=== PATIENT | male | born 1960 | race Caucasian/White ===

== ENCOUNTER 2017-04-02 18:07 | Emergency (ER) | payer OTHER ==
[~2017-04-02] VITALS: Ht 177.8 cm; Wt 90.7 kg
[2017-04-02 19:30] LABS: BASO % 0.1 % (0.0-1.0); EOS % 0.2 % (1.0-4.0); HEMATOCRIT 34.9 % (42.0-52.0); HEMOGLOBIN 11.6 g/dl (14.0-18.0); LYMPH # 1.4 10*3/uL (1.3-4.4); LYMPH % 12.3 % (27.0-41.0); MEAN CELL VOLUME 90.4 fl (80.0-94.0); MEAN CORPUSCULAR HGB 30.1 pg (27.0-31.0); MEAN CORPUSCULAR HGB CONC 33.2 g/dl (33.0-37.0); MEAN PLATELET VOLUME 9.5 fl (9.6-12.3); MONO # 1.3 10*3/uL (0.1-1.0); MONO % 11.5 % (3.0-9.0); NEUT # 8.5 10*3/uL (2.3-7.9); NEUT % 75.5 % (47.0-73.0); PLATELET COUNT AUTOMATED 297 10*3/uL (130-400); RED BLOOD COUNT 3.86 10*6/uL (4.50-5.90); RED CELL DISTRI WIDTH 12.7 % (0-14.5); WHITE BLOOD COUNT 11.2 10*3/uL (4.8-10.8)
[2017-04-02 19:43] LABS: ALBUMIN 3.2 gm/dl (3.1-4.5); ALKALINE PHOSPHATASE 57 U/L (45-117); BUN 36 mg/dl (7-24); CHLORIDE 108 mmol/L (98-107); CREATININE 1.04 mg/dL (0.70-1.30); LIPASE 198 U/L (73-393); SGOT/AST 10 IU/L (3-35); SGPT/ALT 22 U/L (12-78); SODIUM 139 mmol/L (136-145)
== END 2017-04-03 00:31 | disposition home or self-care (01) ==
LOC: ED 18:07
PROVIDERS: Physician Assistant
DX: K62.5 Hemorrhage of anus and rectum (principal)

== ENCOUNTER 2017-04-04 10:45 | Inpatient (IN) | payer OTHER ==
[2017-04-04] VITALS (13 sets, daily range): BP systolic 117–145; BP diastolic 57–82
[~2017-04-04] VITALS: Ht 177.8 cm; Wt 89.8 kg
--- NOTE | ~2017-04-04 | O ---
[place], [place] OPERATIVE NOTE [id number] UNIT #: [id number] ROOM: 412 DOCTOR: SHIV MCDOWELLJULIETA BIRTHDATE: [birth year] DOS: 04/04/2017 GASTROENDOSCOPIC REPORT. HISTORY OF PRESENT ILLNESS: A 56-year-old patient who has presented with chief complaint of black tarry stool, history of bleeding ulcer. ALLERGIES: No known medications. FAMILY HISTORY: Noncontributory. PAST SURGICAL HISTORY: EGDs and tonsillectomy. SOCIAL HISTORY: Nonsmoker, nonalcohol consumer. He is not on aspirin, not on anticoagulant, not on nonsteroidal anti-inflammatory. PROCEDURE: Today's procedure part of investigation is panendoscopy plus biopsy plus epinephrine hemostasis injection therapy plus biopsy. PREMEDICATION: Versed and Diprivan. SCOPE: Olympus forward-viewing gastroscope Q10 video. REPORT: After putting the patient in the left lateral position and after application of lubricant to the scope, the scope was introduced; thereafter, under direct visualization, advanced through the length of esophagus without difficulty. Esophagus cervicothoracic distally carefully examined. Gastric pouch was entered. Presence of blood in the gastric pouch was noticed. Search was made for source of bleeding after suctioning about 500 bile and blood mixture out of the gastric pouch. Duodenal bulb was entered. There is a large clot in the duodenal bulb, which appears to be capping a bleeding vessel. Some of the clot was removed and suspected area was injected with 1 mL of epinephrine 1:10,000 and pyloric ring proximal to the ulcer from the dorsum aspect it was also injected with 1.5 mL of epinephrine to assure control of bleeding and this achieved. The patient's antrum was biopsied for ruling out H. pylori as the culprit and the patient tolerated the procedure well. IMPRESSION: Bleeding duodenal bulb vessel, status post epinephrine injection hemostasis therapy, status post antral biopsy for H. pylori. PLAN AND DISCUSSION: We are going to be supportive therapy, admitting the patient on Sandostatin drip and Protonix 40 mg IV b.i.d., sucralfate 2 grams q. 6 hours, immediate CBC, comprehensive metabolic panel and H and H q. 12 hours, monitoring and clinical reassessment. Thank you very much indeed. [place], [place] OPERATIVE NOTE NAME: JUDD HOLMAN UNIT #: [id number] ROOM: 412 DOCTOR: SHIV MCDOWELL,JULIETA BIRTHDATE: [birth year] JULIETA CHANEY MD CM:OPRECORD:OPERATIVE NOTE [id number] JULIETA CHANEY MD 04/14/17 1709 interface
--- NOTE | ~2017-04-04 | CON ---
[place], [place] REPORT OF CONSULTATION NAME: JUDD HOLMAN UNIT #: [id number] ROOM: 412 DOCTOR: SHIV MCDOWELLCEDRICKDELTAOZZY BIRTHDATE: [birth year] DOS: 04/07/2017 GASTROENDOSCOPIC REPORT HISTORY OF PRESENT ILLNESS: This is a 56-year-old patient who has presented with active gastrointestinal bleed, status post epinephrine and hemostasis therapy, status post Sandostatin drip, continues status post transfusion of 3 units of packed cells Friday evening. He has been kept on ice cream, milk shake. PAST MEDICAL HISTORY: Associated with recurrent duodenal ulcer, abdominal pain, rectal bleed. PAST SURGICAL HISTORY: Endoscopies previously. REVIEW OF SYSTEMS: HEENT: Denies double vision, blurred vision. RESPIRATORY: Denies acute shortness of breath. CARDIOVASCULAR: Denies chest pain. DIGESTIVE SYSTEM: Hematemesis, GI bleed, black tarry stool, drop in H and H, duodenal ulcer. PHYSICAL EXAMINATION: VITAL SIGNS: Stable. HEENT: Head normocephalic, nontraumatic. Mouth and buccal mucosa benign: Supple, no thyromegaly, no cervical lymphadenopathy. CHEST: Symmetric anatomy, equal expansion. No wheeze, no rhonchi. HEART: Normal sinus rhythm, no gallop, no murmur. ABDOMEN: Soft. No hepato-organomegaly. Bowel sounds present. No pulsatile mass. EXTREMITIES: No cyanosis. No pedal edema. NEUROLOGICAL: Alert, oriented to time, place and person. IMPRESSION: Duodenal bulb bleed status post Sandostatin status post sucralfate, status post Protonix, double dose therapy. The patient has been keeping his H and H stable and latest H and H after the Friday evening transfusion is still 8.5 and 25 and yesterday, his H and H as well, stable at 8.4 and 24 and the day before similar post-transfusion. PLAN AND DISCUSSION: I am going to go ahead and give him 1 unit of packed cell transfusion before he will be considered for further advancement and he needs to stay on PPI therapy chronically. When he is discharged, he needs to stay on Carafate and Protonix double dose for 1 month and after that Protonix 40 mg daily for 3 months and after that he needs to remain on omeprazole 20 mg 1 every day. He is going to have H and H after transfusion tonight and now will be getting a call, we are going to increase his diet to soft diet tomorrow morning. He is going to continue the Sandostatin while he is inpatient to ensure that we are going to have no breakthrough bleed. [place], [place] REPORT OF CONSULTATION NAME: JUDD HOLMAN [place] UNIT #: [id number] ROOM: 412 DOCTOR: JULIETA CHANEY MD BIRTHDATE: [birth year] JULIETA CHANEY MD CM:CONSTR:REPORT OF CONSULTATION 99 04/07/17 1836 interface
--- NOTE | 2017-04-04 13:50 | NUR ---
A 56, admitted to , under the services of TONY Espinoza DO with a diagnosis of ULCER. Chief complaint is POST-OP ULCER REPAIR. Patient arrived via stretcher from OP/ADMIT. Monitor applied. Initial assessment completed. Vital signs taken and recorded. TONY ESPINOZA DO notified of admission to the unit. Orders received. See assessment for past medical history, medications and allergies. Patient and/or family oriented to unit. [facility] Clothing/patient valuable form completed. MARY KONG
[2017-04-04 14:34] LABS: BASO % 0.2 % (0.0-1.0); EOS % 0.1 % (1.0-4.0); LYMPH # 1.3 10*3/uL (1.3-4.4); LYMPH % 8.5 % (27.0-41.0); MEAN CELL VOLUME 91.2 fl (80.0-94.0); MEAN CORPUSCULAR HGB 29.9 pg (27.0-31.0); MEAN CORPUSCULAR HGB CONC 32.8 g/dl (33.0-37.0); MEAN PLATELET VOLUME 9.5 fl (9.6-12.3); MONO % 6.1 % (3.0-9.0); PLATELET COUNT AUTOMATED 257 10*3/uL (130-400); RED BLOOD COUNT 2.61 10*6/uL (4.50-5.90); RED CELL DISTRI WIDTH 12.8 % (0-14.5); WHITE BLOOD COUNT 15.5 10*3/uL (4.8-10.8)
[2017-04-04 14:42] LABS: HEMATOCRIT 23.8 % (42.0-52.0); HEMOGLOBIN 7.8 g/dl (14.0-18.0)
[2017-04-04 15:02] LABS: ALKALINE PHOSPHATASE 46 U/L (45-117); BUN 36 mg/dl (7-24); CHLORIDE 105 mmol/L (98-107); CREATININE 0.99 mg/dL (0.70-1.30); POTASSIUM 4.4 mmol/L (3.5-5.1); SGOT/AST 13 IU/L (3-35); SGPT/ALT 22 U/L (12-78); SODIUM 137 mmol/L (136-145); TOTAL PROTEIN 6.3 gm/dL (6.4-8.2)
--- NOTE | 2017-04-04 19:10 | NUR ---
D/C'D THE IV FROM THE RIGHT WRIST. PATIENT STATED THAT THE IV WAS VERY PAINFUL, T/C BAND, ALLERGY BAND AND WRIST BAND WERE ALL ON THE IV SITE. PATIENT REQUESTED THAT IT BE REMOVED.
--- NOTE | 2017-04-04 19:59 | NUR ---
PT WAS APPROACHED TO SIGN A CONSENT FOR BLOOD ADMINISTRATION. I TOLD THE PATIENT HIS CURRENT H/H AND WHY THE TRANSFUSION ORDER WAS IN PLACE. THE PT ASKED TO SPEAK WITH A DOCTOR CONCERNING HIS CONDITION PRIOR TO SIGNING THE CONSENT FORM.
--- NOTE | 2017-04-04 20:30 | NUR ---
Epifanio KERR SPOKE WITH THE PATIENT AND HE IS REFUSING THE BLOOD TRANSFUSION AT THIS TIME HOWEVER HE WILL RECONSIDER IF HIS VITAL SIGNS BECOME UNSTABLE. DR. MCDUFFIE HAD NO FURTHER ORDERS AT THIS TIME.
--- NOTE | 2017-04-04 20:52 | NUR ---
DR. MCDUFFIE NOTIFIED THAT PATIENTS HEART RATE IS RANGING FROM 99-103. DR. MCDUFFIE STATED TO RECHECK HIS VITALS IN ABOUT 15 MINUTES AND IF HE'S ABOUT THE SAME AND SHE WILL COME UP AND SPEAK WITH THE PATIENT AGAIN ABOUT THE BLOOD
--- NOTE | 2017-04-04 21:28 | NUR ---
BP 118/51 HR 115 PO2 100% ON RA. Epifanio KERR CALLED AND NOTIFIED OF THE CHANGE SHE SAID SHE WOULD COME TO DISCUSS THIS CHANGE WITH THE PATIENT
--- NOTE | 2017-04-04 23:29 | NUR ---
DR. MCDUFFIE CALLED AT THIS TIME PERTAINING TO PATIENTS STATUS INQUIRING ABOUT PATIENT HEART RATE AND BLOOD PRESSURE 1 HOUR INTO BLOOD. THIS NURSE STATED THE HEART RATE IS LOWE 100'S AND THE BLOOD PRESSURE 120'S/60'S. THIS NURSE ALSO STATED THAT THE PATIENTS TEMPERATURE IS 99.6 BUT PATIENTS FEELS NO DIFFERENT. THIS NURSE STATED HIS VITALS WILL BE CHECKED AGAIN IN 15 MINUTES. SHE STATED THIS IS FINE. THIS NURSE ALSO STATED THAT THE BOLUS WAS NOT HUNG BECAUSE THE PATIENT NEEDED ANOTHER IV FOR THE BLOOD AND TH BLOOD WAS HUNG DIRECTLY AFTER, SHE STATED IT WAS OK TO HOLD OFF ON THE FLUIDS FOR NOW
--- NOTE | 2017-04-04 23:57 | NUR ---
DR. MCDUFFIE NOTIFIED THAT PATIENTS HEART RATE INCREASED TO 150'S PER CM. DR. MCDUFFIE STATES SHE THINKS THE PATIENT JUST NEEDS VOLUME AND THAT IS THE CAUSE. NO NEW ORDERS RECIEVED. WILL MONITOR
[2017-04-05] VITALS (11 sets, daily range): BP systolic 116–155; BP diastolic 56–75
[2017-04-05 00:20] LABS: HEMATOCRIT 21.6 % (42.0-52.0); HEMOGLOBIN 7.3 g/dl (14.0-18.0)
--- NOTE | 2017-04-05 01:48 | NUR ---
SPOKE WITH DR. MCDUFFIE AT THIS TIME, STATED THAT THE PATIENTS BLOOD WAS DONE AND THAT A H&H WOULD BE DRAWN AT 0245. SHE STATED THIS WOULD BE FINE, AND TO GIVE THE BOLUS THAT WAS ORDERED EARLIER, NOW
[2017-04-05 02:53] LABS: HEMATOCRIT 21.4 % (42.0-52.0); HEMOGLOBIN 7.1 g/dl (14.0-18.0)
[2017-04-05 07:36] LABS: BASO % 0.4 % (0.0-1.0); EOS # 0.2 10*3/uL (0.0-0.4); EOS % 1.6 % (1.0-4.0); HEMATOCRIT 26.1 % (42.0-52.0); HEMOGLOBIN 8.8 g/dl (14.0-18.0); LYMPH # 2.8 10*3/uL (1.3-4.4); LYMPH % 27.4 % (27.0-41.0); MEAN CELL VOLUME 88.8 fl (80.0-94.0); MEAN CORPUSCULAR HGB 29.9 pg (27.0-31.0); MEAN CORPUSCULAR HGB CONC 33.7 g/dl (33.0-37.0); MEAN PLATELET VOLUME 9.3 fl (9.6-12.3); MONO # 1.2 10*3/uL (0.1-1.0); MONO % 11.3 % (3.0-9.0); NEUT # 6.1 10*3/uL (2.3-7.9); NEUT % 58.6 % (47.0-73.0); PLATELET COUNT AUTOMATED 190 10*3/uL (130-400); RED BLOOD COUNT 2.94 10*6/uL (4.50-5.90); RED CELL DISTRI WIDTH 13.7 % (0-14.5); WHITE BLOOD COUNT 10.4 10*3/uL (4.8-10.8)
--- NOTE | 2017-04-05 08:00 | NUR ---
IN BED ALERT AND ORIENTED X3, STATES HE IS VERY TIRED AND HAS NOT HAD ANY SLEEP THROUGHOUT THE NIGHT. NO S/S OF DISTRESS. SANDOSTATIN DRIP INFUSING PER ORDERS. WILL CONT TO MONITOR. CALL LIGHT IN REACH. SEE ASSESS.
[2017-04-05 08:02] LABS: FREE T4 0.94 ng/dl (0.76-1.46); PHOSPHOROUS 2.7 mg/dL (2.5-4.9)
[2017-04-05 08:07] LABS: THYROID STIM HORMONE (HS) 0.226 uIU/ml (0.358-4.75)
[2017-04-05 08:58] LABS: VITAMIN D, 25-HYDROXY 22.9 ng/mL (30-100)
--- NOTE | 2017-04-05 11:38 | NUR ---
PT STOOD UP TO USE THE URINAL AND HR WENT UP TO 140. HE DENIED DIZZINESS OR ANY OTHER SYMPTOMS. PT HR RETURNED TO 70s AFTER LAYING BACK DOWN. I DID NOTIFY TO TORMA OF THIS. NO NEW ORDERS RECEIVED.
[2017-04-05 12:00] LABS: HEMATOCRIT 24.7 % (42.0-52.0); HEMOGLOBIN 8.5 g/dl (14.0-18.0)
[2017-04-05 15:13] LABS: HEMATOCRIT 24.7 % (42.0-52.0); HEMOGLOBIN 8.5 g/dl (14.0-18.0)
--- NOTE | 2017-04-05 19:55 | NUR ---
PT. AWAKE, ALERT AND ORIENTED X3 AT THIS TIME. PT. IN BED ON RA, DENIES SOB. HRR, PPP, NO EDEMA, DENIES CP. PT. MADE NOT OF AN "ITCHY" SPOT ON HIS RAC THAT HE STATED WAS FROM THE TAPE THEY USED DURING BLOOD DRAWS. PT. REQUESTED A CREAM TO HELP RESOLVE THE ITCH. RAC SPOT VERGES ON SKIN TEAR; THIS NURSE HAD NURSING TIE SAWYER TAKE A LOOK TO DETERMINE IF PICTURES WOULD BE NECESSARY. ADVISED TO ERR ON THE SIDE OF CAUTION AND DOCUMENT PICTURES OF THE AREA. CALL LIGHT WITHIN REACH, BED IN LOWEST POSITION, WHEELS LOCKED. SEE SHIFT ASSESSMENT.
--- NOTE | 2017-04-05 21:05 | NUR ---
SPOKE WITH DR. ROBERTSON AT THIS TIME REGARDING AREA ON PTS. RAC. DR. ROBERTSON GAVE ORDER TO PUT IN FOR HYDROCORTISONE AT THIS TIME.
--- NOTE | 2017-04-05 21:41 | NUR ---
SPOKE WITH PHARMACY AT THIS TIME IN REGARDS TO PTS. SANDOSTATIN ORDER. PT. CURRENTLY HAS 6 HOURS REMAINING ON CURRENT INFUSION EVEN THOUGH THE NEXT INFUSION IS DUE AT 2200. PER PHARMACY, IT IS OK TO LEAVE IT IN THE SYSTEM LIKE THIS AND TO SCAN AND HANG THE NEXT SANDOSTATIN WHEN IT IS DUE.
--- NOTE | 2017-04-05 22:02 | NUR ---
MARY COMPLETED AT THIS TIME FOR RT. AC AREA.
--- NOTE | 2017-04-05 22:18 | NUR ---
PHOTOGRAPH TAKEN OF RT. AC AREA AT THIS TIME. WILL NOTIFY LEAD JAVA DEVELOPER ARCHITECT OF PICTURE.
[2017-04-06] VITALS: BP 135/78
--- NOTE | 2017-04-06 01:41 | NUR ---
24 HR. CHART CHECK COMPLETE.
[2017-04-06 05:59] LABS: BASO # 0.1 10*3/uL (0.0-0.1); BASO % 0.6 % (0.0-1.0); EOS # 0.7 10*3/uL (0.0-0.4); EOS % 7.2 % (1.0-4.0); HEMATOCRIT 24.7 % (42.0-52.0); HEMOGLOBIN 8.4 g/dl (14.0-18.0); LYMPH # 2.9 10*3/uL (1.3-4.4); MEAN CELL VOLUME 89.5 fl (80.0-94.0); MEAN CORPUSCULAR HGB 30.4 pg (27.0-31.0); MEAN PLATELET VOLUME 9.8 fl (9.6-12.3); MONO % 10.1 % (3.0-9.0); NEUT # 4.9 10*3/uL (2.3-7.9); NEUT % 51.3 % (47.0-73.0); NUCLEATED RED BLOOD CELL 0.3 % (0.0-0.0); PLATELET COUNT AUTOMATED 233 10*3/uL (130-400); RED BLOOD COUNT 2.76 10*6/uL (4.50-5.90); RED CELL DISTRI WIDTH 14.2 % (0-14.5); WHITE BLOOD COUNT 9.6 10*3/uL (4.8-10.8)
[2017-04-06 06:30] LABS: CHLORIDE 107 mmol/L (98-107); CREATININE 1.09 mg/dL (0.70-1.30); POTASSIUM 4.2 mmol/L (3.5-5.1); SODIUM 141 mmol/L (136-145)
[2017-04-06 06:31] LABS: BUN 20 mg/dl (7-24)
[2017-04-06 08:00] VITALS: BP 134/54
--- NOTE | 2017-04-06 11:42 | NUR ---
HR IN 150'S, PT WAS UP TO RR FOR AM HYGIENE.
[2017-04-06 12:00] VITALS: BP 169/78
[2017-04-06 16:00] VITALS: BP 115/67
[2017-04-06 20:00] VITALS: BP 116/62
[2017-04-07] VITALS: BP 127/62
--- NOTE | 2017-04-07 01:38 | NUR ---
24 HR chart check completed.
[2017-04-07 04:00] VITALS: BP 130/68
[2017-04-07 06:14] LABS: BASO % 0.4 % (0.0-1.0); EOS # 0.6 10*3/uL (0.0-0.4); EOS % 7.2 % (1.0-4.0); HEMOGLOBIN 8.5 g/dl (14.0-18.0); LYMPH # 2.9 10*3/uL (1.3-4.4); LYMPH % 34.2 % (27.0-41.0); MEAN CELL VOLUME 90.6 fl (80.0-94.0); MEAN CORPUSCULAR HGB 30.8 pg (27.0-31.0); MEAN PLATELET VOLUME 9.3 fl (9.6-12.3); MONO # 0.9 10*3/uL (0.1-1.0); MONO % 10.6 % (3.0-9.0); NEUT % 46.9 % (47.0-73.0); NUCLEATED RED BLOOD CELL 0.2 % (0.0-0.0); PLATELET COUNT AUTOMATED 295 10*3/uL (130-400); RED BLOOD COUNT 2.76 10*6/uL (4.50-5.90); RED CELL DISTRI WIDTH 14.5 % (0-14.5); WHITE BLOOD COUNT 8.5 10*3/uL (4.8-10.8)
[2017-04-07 06:28] LABS: BUN 18 mg/dl (7-24); CHLORIDE 106 mmol/L (98-107); CREATININE 1.15 mg/dL (0.70-1.30); POTASSIUM 3.6 mmol/L (3.5-5.1); SODIUM 141 mmol/L (136-145)
--- NOTE | 2017-04-07 06:35 | NUR ---
PT RESTING QUIETLY IN BED WITH EYES CLOSED. NO S/S OF DISTRESS NOTED.
[2017-04-07 08:00] VITALS: BP 124/68
--- NOTE | 2017-04-07 09:00 | NUR ---
Catechist in to talk to patient. Patient states lives at home with girlfriend. There are few steps in the home. Physician: troy morton Pharmacy: [facility] health services: none Patient's level of ADLs: INDEPENDENT Patient has working utilities: all workibg DME: none Follow-up physician's appointment after d/c: will be made by hospitalist nurse director upon discharge Does patient want to access PORTAL?: no Discharge plan discussed with patient, patient lives at home with girlfriend, he is independent in adls and ambualtion, works, drives, patient will be going back home when able and denies any home needs. TIFFANIE MATT
--- NOTE | 2017-04-07 09:36 | NUR ---
JUDD HOLMAN [id number] Please refer to the physician's history and physical for past medical history, comorbid conditions, and allergies. Diagnosis: DUODENAL BLEED Vin Score: 23,LOW OR NO RISK WOUND DESCRIPTIONS: Location of the wound: rigth ac Type of wound: skin tear Thickness: Partial Size: 0.5cm x 1.5cm x 0.1cm Tunneling: none Undermining: none Sinus Tract: none Presence of Exudate: none Amount: None Color: Red Odor: None Periwound Skin Appearance: Normal Wound edges: approximated Pain (associated with wound): none at time of assessment How does patient state this happened? pt stated he had several blood draws and when the tape kept getting applied and taken off it caused this area. He stated the area became very itchy and that it is getting better. Surface the patient is resting on: Position Pro SKIN PREVENTION RECOMMENDATION: 1. Pressure redistribution support surface as appropriate 2. Elevate heels 3. Remove boots/TEDS every shift and reapply 4. Head of bed 30 degrees as tolerated 5. Assess nutrition and hydration 6. Manage moisture 7. Avoid the use of containment devices while in bed 8. Use absorptive products on surfaces limit layers of linens on bed 9. Turn and reposition every 1-2 hours in bed and every 1 hour in chair as tolerated 10. Weight shifts every 15 minutes while up in chair 11. Offloading with pillows or device to keep heels elevated off bed 12. Monitor skin at least every shift 13. Inspect under medical devices twice a day WOUND TREATMENT RECOMMENDATIONS: Continue current treatment as per md.
[2017-04-07 12:00] VITALS: BP 125/76
--- NOTE | 2017-04-07 14:45 | NUR ---
PT AWAKE ALERT AND ORIENTED X3, NO COMPLAINTS AT THIS TIME. DENIES PAIN N/V/D
[2017-04-07 16:00] VITALS: BP 119/73
--- NOTE | 2017-04-07 19:23 | NUR ---
PT. RESTING COMFORTABLY IN BED AT THIS TIME WITH HOB ELEVATED, WHEELS LOCKED, BED IN LOWEST POSITION AND CALL LIGHT WITHIN REACH. PT. HAS NO COMPLAINTS AT THIS TIME. SEE SHIFT ASSESSMENT.
[2017-04-07 20:00] VITALS: BP 112/65
[2017-04-08] VITALS: BP 113/66
[2017-04-08 07:39] LABS: BASO % 0.5 % (0.0-1.0); EOS # 0.3 10*3/uL (0.0-0.4); EOS % 3.7 % (1.0-4.0); HEMOGLOBIN 10.4 g/dl (14.0-18.0); LYMPH # 2.2 10*3/uL (1.3-4.4); MEAN CELL VOLUME 88.2 fl (80.0-94.0); MEAN CORPUSCULAR HGB 30.6 pg (27.0-31.0); MEAN CORPUSCULAR HGB CONC 34.7 g/dl (33.0-37.0); MEAN PLATELET VOLUME 8.9 fl (9.6-12.3); MONO # 1.1 10*3/uL (0.1-1.0); MONO % 12.3 % (3.0-9.0); NEUT % 57.8 % (47.0-73.0); PLATELET COUNT AUTOMATED 344 10*3/uL (130-400); RED CELL DISTRI WIDTH 15.2 % (0-14.5); WHITE BLOOD COUNT 8.6 10*3/uL (4.8-10.8)
[2017-04-08 08:00] VITALS: BP 127/63; BP 148/78
--- NOTE | 2017-04-08 09:00 | NUR ---
case management visits with patient, patient states he hopes to be going home today and denies any home needs
--- NOTE | 2017-04-08 09:18 | NUR ---
PT TOLERATED SOFT DIET THIS AM, PT ALSO REPORTS A SMALL HARD BM. PT DENIES N/V NORMOACTIVE BOWEL SOUNDS.
--- NOTE | 2017-04-08 11:44 | NUR ---
NOTIFIED OF H&H AND DARK STOOL X1. PT DENIES ANY ABD PAIN N/V/D
[2017-04-08 12:00] VITALS: BP 124/64
[2017-04-08 16:00] VITALS: BP 150/81
[2017-04-08 20:00] VITALS: BP 142/77
--- NOTE | 2017-04-08 20:15 | NUR ---
PT. RESTING IN BED COMFORTABLY AT THIS TIME WITH NO SIGNS OF DISTRESS OR ANY COMPLAINTS. HOB IS ELEVATED, CALL LIGHT IS WITHIN REACH, BED IS LOW AND WHEELS ARE LOCKED. SEE SHIFT ASSESSMENT.
[2017-04-09] VITALS: BP 108/71
--- NOTE | 2017-04-09 00:51 | NUR ---
24 HR chart check completed.
[2017-04-09 04:00] VITALS: BP 116/74
[2017-04-09 06:57] LABS: BASO % 0.5 % (0.0-1.0); EOS # 0.4 10*3/uL (0.0-0.4); HEMATOCRIT 28.7 % (42.0-52.0); HEMOGLOBIN 9.6 g/dl (14.0-18.0); LYMPH # 2.2 10*3/uL (1.3-4.4); LYMPH % 28.4 % (27.0-41.0); MEAN CELL VOLUME 89.7 fl (80.0-94.0); MEAN CORPUSCULAR HGB CONC 33.4 g/dl (33.0-37.0); MEAN PLATELET VOLUME 9.1 fl (9.6-12.3); MONO # 1.1 10*3/uL (0.1-1.0); NEUT % 51.7 % (47.0-73.0); PLATELET COUNT AUTOMATED 356 10*3/uL (130-400); RED CELL DISTRI WIDTH 14.8 % (0-14.5); WHITE BLOOD COUNT 7.7 10*3/uL (4.8-10.8)
[2017-04-09 08:00] VITALS: BP 135/87
--- NOTE | 2017-04-09 09:00 | NUR ---
case management visits with patient, patient denies any home needs
[2017-04-09 12:00] VITALS: BP 133/71
--- NOTE | 2017-04-09 13:04 | NUR ---
Dr. Talley was called message left to return call re: discontinuation of sandostatin drip.
--- NOTE | 2017-04-09 15:27 | NUR ---
Dr. Talley called in ok to stop sandostatin . H/H in AM.
[2017-04-09 15:49] LABS: BASO % 0.4 % (0.0-1.0); EOS # 0.3 10*3/uL (0.0-0.4); EOS % 2.9 % (1.0-4.0); HEMATOCRIT 29.6 % (42.0-52.0); HEMOGLOBIN 9.9 g/dl (14.0-18.0); LYMPH % 21.3 % (27.0-41.0); MEAN CELL VOLUME 90.2 fl (80.0-94.0); MEAN CORPUSCULAR HGB 30.2 pg (27.0-31.0); MEAN CORPUSCULAR HGB CONC 33.4 g/dl (33.0-37.0); MONO # 1.1 10*3/uL (0.1-1.0); MONO % 11.4 % (3.0-9.0); NEUT # 5.9 10*3/uL (2.3-7.9); NEUT % 63.6 % (47.0-73.0); PLATELET COUNT AUTOMATED 418 10*3/uL (130-400); RED BLOOD COUNT 3.28 10*6/uL (4.50-5.90); RED CELL DISTRI WIDTH 14.9 % (0-14.5); WHITE BLOOD COUNT 9.3 10*3/uL (4.8-10.8)
[2017-04-09 16:00] VITALS: BP 156/84
[2017-04-09 20:00] VITALS: BP 129/66
[2017-04-10] VITALS: BP 116/64
[2017-04-10 06:11] LABS: BASO % 0.4 % (0.0-1.0); EOS # 0.4 10*3/uL (0.0-0.4); EOS % 5.3 % (1.0-4.0); HEMOGLOBIN 9.7 g/dl (14.0-18.0); LYMPH # 2.1 10*3/uL (1.3-4.4); LYMPH % 24.8 % (27.0-41.0); MEAN CELL VOLUME 91.5 fl (80.0-94.0); MEAN CORPUSCULAR HGB 30.6 pg (27.0-31.0); MEAN CORPUSCULAR HGB CONC 33.4 g/dl (33.0-37.0); MONO % 11.7 % (3.0-9.0); NEUT # 4.7 10*3/uL (2.3-7.9); NEUT % 57.1 % (47.0-73.0); PLATELET COUNT AUTOMATED 394 10*3/uL (130-400); RED BLOOD COUNT 3.17 10*6/uL (4.50-5.90); RED CELL DISTRI WIDTH 14.7 % (0-14.5); WHITE BLOOD COUNT 8.3 10*3/uL (4.8-10.8)
[2017-04-10 06:32] LABS: BUN 24 mg/dl (7-24); CHLORIDE 107 mmol/L (98-107); POTASSIUM 3.7 mmol/L (3.5-5.1); SODIUM 141 mmol/L (136-145)
[2017-04-10 06:33] LABS: CREATININE 1.14 mg/dL (0.70-1.30)
[2017-04-10 08:00] VITALS: BP 123/73
--- NOTE | 2017-04-10 09:00 | NUR ---
case management visits with patient, patient denies any home needs at this time
[2017-04-10 12:00] VITALS: BP 117/60
[2017-04-10] MEDS ORDERED: PANTOPRAZOLE SO40 MG PO (12:40)
[2017-04-10] MEDS ORDERED: Carafate1 GM PO (12:40)
--- NOTE | 2017-04-10 12:49 | NUR ---
[facility] Discharge instructions reviewed with patient/family. Patient receptive and verbalizes understanding. Follow-up care arranged. Written instructions given to patient/family. LISA HUITRON
== END 2017-04-10 12:49 | disposition home or self-care (01) | DRG 327 ==
LOC: SDC 10:45 → 4E 12:12 → SDC 14:30 → 4E 21:57
PROVIDERS: Family Medicine; Internal Medicine; Internal Medicine Gastroenterology; Registered Nurse; ADMIT Internal Medicine
PROC: 3E0G8GC Introduction of Other Therapeutic Substance into Upper GI, Via Natural or Artificial Opening Endoscopic (ICD-10-PCS; principal; 2017-04-04)
PROC: 0DB68ZX Excision of Stomach, Via Natural or Artificial Opening Endoscopic, Diagnostic (ICD-10-PCS; principal; 2017-04-04)
PROC: 30233N1 Transfusion of Nonautologous Red Blood Cells into Peripheral Vein, Percutaneous Approach (ICD-10-PCS; 2017-04-04)
PROC: 0DC98ZZ Extirpation of Matter from Duodenum, Via Natural or Artificial Opening Endoscopic (ICD-10-PCS; 2017-04-04)
PROC: 0D968ZZ Drainage of Stomach, Via Natural or Artificial Opening Endoscopic (ICD-10-PCS; 2017-04-04)
DX: K26.4 Chronic or unspecified duodenal ulcer with hemorrhage (principal); E44.0 Moderate protein-calorie malnutrition; D50.0 Iron deficiency anemia secondary to blood loss (chronic); E66.3 Overweight; R19.8 Other specified symptoms and signs involving the digestive system and abdomen; E53.8 Deficiency of other specified B group vitamins; E83.41 Hypermagnesemia; E78.1 Pure hyperglyceridemia; R00.0 Tachycardia, unspecified; Z79.899 Other long term (current) drug therapy; Z80.6 Family history of leukemia; Z68.28 Body mass index [BMI] 28.0-28.9, adult; K62.5 Hemorrhage of anus and rectum

== ENCOUNTER → 2017-07-02 | Outpatient (CLI) | payer OTHER ==
[~2017-07-02] MED LIST: Carafate1 GM PO; PANTOPRAZOLE SO40 MG PO
[2017-07-02 16:22] LABS: BASO # 0.1 10*3/uL (0.0-0.1); BASO % 0.8 % (0.0-1.0); EOS # 0.4 10*3/uL (0.0-0.4); EOS % 6.8 % (1.0-4.0); HEMATOCRIT 38.5 % (42.0-52.0); HEMOGLOBIN 11.8 g/dl (14.0-18.0); LYMPH # 1.6 10*3/uL (1.3-4.4); LYMPH % 27.5 % (27.0-41.0); MEAN CELL VOLUME 83.5 fl (80.0-94.0); MEAN CORPUSCULAR HGB 25.6 pg (27.0-31.0); MEAN CORPUSCULAR HGB CONC 30.6 g/dl (33.0-37.0); MEAN PLATELET VOLUME 9.4 fl (9.6-12.3); MONO # 0.7 10*3/uL (0.1-1.0); NEUT # 3.1 10*3/uL (2.3-7.9); NEUT % 52.7 % (47.0-73.0); PLATELET COUNT AUTOMATED 353 10*3/uL (130-400); RED BLOOD COUNT 4.61 10*6/uL (4.50-5.90); RED CELL DISTRI WIDTH 14.3 % (0-14.5); WHITE BLOOD COUNT 5.9 10*3/uL (4.8-10.8)
[2017-07-02 16:53] LABS: ALBUMIN 3.9 gm/dl (3.1-4.5); ALKALINE PHOSPHATASE 70 U/L (45-117); BUN 16 mg/dl (7-24); CHLORIDE 104 mmol/L (98-107); CHOLESTEROL 260 mg/dL (<200); CREATININE 1.15 mg/dL (0.70-1.30); HDL CHOLESTEROL 43 mg/dl (40-60); LDL CHOLESTEROL 175 mg/dL (9-159); SGOT/AST 24 IU/L (3-35); SGPT/ALT 30 U/L (12-78); SODIUM 140 mmol/L (136-145); TOTAL PROTEIN 8.1 gm/dL (6.4-8.2); TRIGLYCERIDES 210 mg/dl (<150); VLDL CHOLESTEROL 42 mg/dL (6-40)
== END | disposition home or self-care (01) ==
LOC: LAB 15:38
PROVIDERS: Internal Medicine
DX: I10 Essential (primary) hypertension (principal)

== ENCOUNTER → 2017-12-24 | Outpatient (CLI) | payer OTHER ==
[2017-12-24 16:24] LABS: BASO # 0.1 10*3/uL (0.0-0.1); BASO % 0.8 % (0.0-1.0); EOS # 0.3 10*3/uL (0.0-0.4); HEMATOCRIT 42.6 % (42.0-52.0); HEMOGLOBIN 13.9 g/dl (14.0-18.0); LYMPH # 1.8 10*3/uL (1.3-4.4); LYMPH % 28.5 % (27.0-41.0); MEAN CELL VOLUME 89.7 fl (80.0-94.0); MEAN CORPUSCULAR HGB 29.3 pg (27.0-31.0); MEAN CORPUSCULAR HGB CONC 32.6 g/dl (33.0-37.0); MEAN PLATELET VOLUME 9.5 fl (9.6-12.3); MONO # 0.9 10*3/uL (0.1-1.0); MONO % 14.6 % (3.0-9.0); NEUT # 3.3 10*3/uL (2.3-7.9); NEUT % 51.9 % (47.0-73.0); PLATELET COUNT AUTOMATED 318 10*3/uL (130-400); RED BLOOD COUNT 4.75 10*6/uL (4.50-5.90); RED CELL DISTRI WIDTH 13.4 % (0-14.5); WHITE BLOOD COUNT 6.3 10*3/uL (4.8-10.8)
[2017-12-24 16:40] LABS: ALBUMIN 3.9 gm/dl (3.1-4.5); ALKALINE PHOSPHATASE 65 U/L (45-117); BUN 19 mg/dl (7-24); CHLORIDE 108 mmol/L (98-107); CHOLESTEROL 255 mg/dL (<200); CREATININE 1.44 mg/dL (0.70-1.30); HDL CHOLESTEROL 41 mg/dl (40-60); LDL CHOLESTEROL 181 mg/dL (9-159); POTASSIUM 4.1 mmol/L (3.5-5.1); SGOT/AST 17 IU/L (3-35); SGPT/ALT 33 U/L (12-78); SODIUM 141 mmol/L (136-145); TOTAL PROTEIN 7.7 gm/dL (6.4-8.2); TRIGLYCERIDES 165 mg/dl (<150); VLDL CHOLESTEROL 33 mg/dL (6-40)
== END | disposition home or self-care (01) ==
LOC: LAB 16:00
PROVIDERS: Internal Medicine
DX: I10 Essential (primary) hypertension (principal)

== ENCOUNTER → 2019-06-25 | Outpatient (CLI) | payer OTHER ==
[2019-06-25 18:04] LABS: BUN 17 mg/dl (7-24); CHLORIDE 108 mmol/L (98-107); CHOLESTEROL 173 mg/dL (<200); CREATININE 1.38 mg/dL (0.70-1.30); HDL CHOLESTEROL 42 mg/dl (40-60); LDL CHOLESTEROL 101 mg/dL (9-159); POTASSIUM 4.1 mmol/L (3.5-5.1); SODIUM 139 mmol/L (136-145); TRIGLYCERIDES 148 mg/dl (<150); VLDL CHOLESTEROL 30 mg/dL (6-40)
== END | disposition home or self-care (01) ==
LOC: LAB 14:03
PROVIDERS: Internal Medicine
DX: E78.5 Hyperlipidemia, unspecified (principal); N18.3 Chronic kidney disease, stage 3 (moderate)

== ENCOUNTER → 2019-12-28 | Outpatient (CLI) | payer OTHER ==
[2019-12-28 14:11] LABS: BASO % 0.5 % (0.0-1.0); EOS # 0.4 10*3/uL (0.0-0.4); EOS % 6.5 % (1.0-4.0); HEMATOCRIT 39.5 % (42.0-52.0); LYMPH % 30.5 % (27.0-41.0); MEAN CORPUSCULAR HGB 29.5 pg (27.0-31.0); MEAN CORPUSCULAR HGB CONC 32.4 g/dl (33.0-37.0); MEAN PLATELET VOLUME 9.2 fl (9.6-12.3); MONO # 0.9 10*3/uL (0.1-1.0); MONO % 13.3 % (3.0-9.0); NEUT # 3.2 10*3/uL (2.3-7.9); PLATELET COUNT AUTOMATED 300 10*3/uL (130-400); RED BLOOD COUNT 4.34 10*6/uL (4.50-5.90); RED CELL DISTRI WIDTH 12.9 % (0-14.5); WHITE BLOOD COUNT 6.5 10*3/uL (4.8-10.8)
[2019-12-28 14:30] LABS: ALBUMIN 3.7 gm/dl (3.1-4.5); ALKALINE PHOSPHATASE 66 U/L (45-117); BUN 23 mg/dl (7-24); CHLORIDE 111 mmol/L (98-107); CHOLESTEROL 165 mg/dL (<200); CREATININE 1.04 mg/dL (0.70-1.30); HDL CHOLESTEROL 39 mg/dl (40-60); LDL CHOLESTEROL 92 mg/dL (9-159); POTASSIUM 3.9 mmol/L (3.5-5.1); SGOT/AST 21 IU/L (3-35); SGPT/ALT 38 U/L (12-78); SODIUM 141 mmol/L (136-145); TOTAL PROTEIN 7.2 gm/dL (6.4-8.2); TRIGLYCERIDES 168 mg/dl (<150); VLDL CHOLESTEROL 34 mg/dL (6-40)
== END | disposition home or self-care (01) ==
LOC: LAB 13:54
PROVIDERS: Internal Medicine
DX: Z00.00 Encounter for general adult medical examination without abnormal findings (principal); I10 Essential (primary) hypertension

== ENCOUNTER 2024-01-29 09:24 | Emergency (ER) | payer OTHER ==
[~2024-01-29] VITALS: Ht 177.8 cm
[2024-01-29] MEDS ORDERED: PREDNISONE50 MG PO (09:43)
[2024-01-29] MEDS ORDERED: methylPREDNISolone sod succ 125 MG VIAL IM ONE (09:45)
== END 2024-01-29 09:54 | disposition home or self-care (01) ==
LOC: ED 09:24
DX: M54.41 Lumbago with sciatica, right side (principal); M79.651 Pain in right thigh; Z98.890 Other specified postprocedural states; Z90.89 Acquired absence of other organs

== ENCOUNTER → 2024-02-06 | Outpatient (CLI) | payer OTHER ==
[~2024-02-06] MED LIST changes: +PREDNISONE50 MG PO
== END | disposition home or self-care (01) ==
LOC: RAD 08:25
PROVIDERS: ATTEND Chiropractor
DX: M54.50 Low back pain, unspecified (principal)